=== PATIENT | female | born 1965 | race Caucasian/White ===

== ENCOUNTER 2017-10-29 06:02 | Day surgery (SDC) | payer BC ==
[2017-10-29] MEDS ORDERED: DIPRIVAN 200 MG/20 ML IV ONE (06:03)
[2017-10-29] MEDS ORDERED: Lactated Ringers 1,000 ML IV SCH (07:00)
[2017-10-29 08:44] VITALS: PULSE 74; O2SAT 96
[2017-10-29 08:58] VITALS: BP 130/60
--- NOTE | 2017-10-29 10:49 | OP ---
SURGERY DATE/TIME: 10/26/2017 0755 PREOPERATIVE DIAGNOSIS: Screening exam. POSTOPERATIVE DIAGNOSIS: Normal colon. PROCEDURE: Colonoscopy. SURGEON: Dr. Trinidad. ANESTHESIA: MAC. Medications given by anesthesia department. HISTORY: The patient is a 51 year-old white female presenting now for screening colonoscopy. She was appraised of the risks of the procedure including the risk of perforation, phlebitis, untoward reaction to medication, bleeding and missed lesions. The patient verbalized her understanding and desired to have the procedure performed. DESCRIPTION OF PROCEDURE: The patient was given the medications by the anesthesia department. She had continuous pulse oximetry, ECG monitoring, intermittent blood pressure monitoring and tidal CO2 monitoring during the examination. She was placed in the left lateral decubitus position. A digital rectal examination was performed and revealed normal anal sphincter tone and no masses. The flexible Olympus pediatric colonoscope was used to intubate the rectum. A view of the colon was developed sequentially to the cecum. Upon insertion and withdrawal, including a retroflex view in the rectum, no mucosal lesions were noted. The scope was removed from the patient who tolerated the procedure well and was sent back to OP recovery in good condition. The prep was noted to be fair to good.
== END 2017-10-29 09:12 | disposition home or self-care (01) ==
LOC: SDC 06:02
PROVIDERS: ATTEND Family Medicine
DX: Z12.11 Encounter for screening for malignant neoplasm of colon (principal); I10 Essential (primary) hypertension; E03.9 Hypothyroidism, unspecified
CPT/HCPCS: 94250; J2704

== ENCOUNTER 2019-05-04 14:20 | Emergency (ER) | payer BC ==
--- NOTE | 2019-05-04 14:45 | ERPHSYRPT ---
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 reports left wrist pain that radiates to the elbow. pt also reports some left sided neck tenderness. pt denies LOC. pt denies striking her head. Triage Nursing Assessment: pt is aox3, pupils perrl, afebrile, resps easy and non labored, pt radial pulses strong and equal, cap refill , 3 seconds, pt skin pink warm dry. pt sensation and ROM intact. pt able to move all fingers on injured extremity, no obvious injury or deformity noted. Physician History: 53 yo presented with CC of left wrist pain after she slipped at home and tried to catch herself with left out stretched hand. didnt hit head or injury anywhere else. has mild swelling of the distal wrist and proximal hand but no deformity. no numbness/weakness of digits. Occurred: just prior to arrival Method of Injury: fell Quality: constant, sharpness Severity of Pain-Max: moderate Severity of Pain-Current: moderate Extremities Pain Location: wrist: left Modifying Factors: Improves With: immobilization, movement Allergies/Adverse Reactions: No Known Drug Allergies Allergy (Verified 05/04/19 14:32) Home Medications: Atorvastatin Calcium [Lipitor] 10 mg PO DAILY 10/26/17 [History] Levothyroxine Sodium 50 Mcg [Synthroid 50 Mcg] 50 mcg PO DAILY 10/26/17 [ History] Loratadine 10 mg [Claritin 10 mg] 10 mg PO DAILY 10/26/17 [History] Nebivolol HCl 5 MG [Bystolic 5 MG] 5 mg PO DAILY 10/26/17 [History] Hx Tetanus, Diphtheria Vaccination/Date Given: Yes (unk) Hx Influenza Vaccination/Date Given: No Hx Pneumococcal Vaccination/Date Given: No Immunizations Up to Date: Yes - Review of Systems Constitutional: No Symptoms Eyes: No Symptoms Ears, Nose, & Throat: No Symptoms Respiratory: No Symptoms Cardiac: No Symptoms Abdominal/Gastrointestinal: No Symptoms Musculoskeletal: Fall, Joint Pain, Joint Swelling Skin: No Symptoms Neurological: No Symptoms Psychological: No Symptoms Endocrine: No Symptoms Immunological/Allergic: No Symptoms - Past Medical History Pertinent Past Medical History: Yes Neurological History: No Pertinent History ENT History: No Pertinent History Cardiac History: High Cholesterol, Hypertension, Other Respiratory History: Other Endocrine Medical History: No Pertinent History Musculoskeletal History: No Pertinent History GI Medical History: No Pertinent History History: No Pertinent History Psycho-Social History: No Pertinent History Female Reproductive Disorders: No Pertinent History Other Medical History: states hx of rheumatit fever, possible heart murmur - Past Surgical History Past Surgical History: Yes Neuro Surgical History: No Pertinent History Cardiac: No Pertinent History Respiratory: Other Gastrointestinal: No Pertinent History Genitourinary: No Pertinent History Musculoskeletal: No Pertinent History Female Surgical History: Tubal Ligation Other Surgical History: states cleft palate/lip, snores at night - Social History Smoking Status: Never smoker Exposure to second hand smoke: No Drug Use: none Patient Lives Alone: No - Female History Hx Last Menstrual Period: pre menopause Hx Now: No - Nursing Vital Signs Nursing Vital Signs: Initial Vital Signs Temperature 97.3 F 05/04/19 14:22 Pulse Rate 87 05/04/19 14:22 Respiratory Rate 20 05/04/19 14:22 Blood Pressure 148/84 05/04/19 14:22 O2 Sat by Pulse Oximetry 97 05/04/19 14:22 Pain Scale Pain Intensity 5 - Physical Exam General Appearance: no apparent distress Eyes, Ears, Nose, Throat Exam: normal ENT inspection Neck Exam: normal inspection, non-tender, supple, full range of motion Cardiovascular/Respiratory Exam: normal breath sounds, regular rate/rhythm Abdominal Exam: non-tender, soft Back Exam: normal inspection Shoulder Exam: normal inspection, non-tender, no evidence of injury, normal ROM Elbow/Forearm Exam: normal inspection, non-tender, no evidence of injury, normal ROM Wrist Exam: bone tenderness (distal radius. no snuff box tenderness.), limited ROM, pain, soft tissue tenderness, swelling, No deformity Neuro/Tendon Exam: normal sensation, normal motor functions Mental Status Exam: alert, oriented x 3 Skin Exam: normal color SpO2 Interpretation: normal SpO2: 97 O2 Delivery: Room Air - Course Nursing assessment & vital signs reviewed: Yes Ordered Tests: Active Orders 24 hr Category Date Time Status Cold Application STAT Care 05/04/19 14:30 Active WRIST (MIN 3 VIEWS) Stat Exams 05/04/19 15:01 Taken - Progress Progress: pain not gone completely, re-examined Progress Note: 05/04/19 15:23 she refused pain meds. has some questionable wrist fracture , radiology report is pending , willplace in sugar tong splint /sling and outpatient ortho follow up. shehas naproxen at home which she is advised to take and f/u - Departure Departure Disposition: Home Clinical Impression: Acute pain of left wrist Condition: Stable Critical Care Time: No Referrals: GEE ABARCA [Primary Care Provider] - Follow Up with PCP/3 days ARTUR[facility] [NON-STAFF PHY W/O PRIVILEGES] - (1-2 days for re evaluation) Instructions: Wrist Fracture, Wrist Sprain Additional Instructions: use tylenol/naproxen as needed for pain, elevation, ice, follow up with ortho clinic for re evaluation.
[2019-05-04 15:17] VITALS: PULSE 76
[2019-05-04 15:29] VITALS: O2SAT 97
[2019-05-04 15:41] VITALS: BP 134/68
--- NOTE | 2019-05-04 18:35 | XRAY ---
Indication: Pain following fall. Comparison: None 3 views of the left wrist demonstrates nondisplaced corner fracture distal radius laterally with intra-articular extension and mild 1st metacarpal multangular degenerative changes with tiny heterotopic ossification. No other bony, ocular, or soft tissue abnormalities.
== END 2019-05-04 15:48 | disposition home or self-care (01) ==
LOC: ED 14:20
DX: M25.532 Pain in left wrist (principal); M54.2 Cervicalgia; W01.0XXA Fall on same level from slipping, tripping and stumbling without subsequent striking against object, initial encounter; E78.00 Pure hypercholesterolemia, unspecified; I10 Essential (primary) hypertension
CPT/HCPCS: 73110; 99284

== ENCOUNTER 2022-09-12 17:46 | Emergency (ER) | payer BC ==
--- NOTE | 2022-09-12 18:00 | ERPHSYRPT ---
- History of Present Illness Time Seen by Provider: 09/12/22 18:00 Historian: patient Exam Limitations: no limitations Physician History: Patient is a 56-year-old female presents to our ED for evaluation of intermittent chest pain. Chest pain started approximately 2 days ago. Patient states the pain tends to radiate towards her back. No nausea vomiting or diaphoresis. Patient is a non-smoker. Patient states she smoked approximately 30 years ago but has not smoked since. No trauma. No fever. Symptoms are mild to moderate in intensity when present. Significant other at bedside. They voiced no other complaints or concerns at this time. Portions of this note were created with voice recognition technology. There may be grammatical, spelling, punctuation or sound alike errors Timing/Duration: day(s) (2 days ago) Activities at Onset: none Quality: aching Location: substernal Chest Pain Radiation: back Severity of Pain-Max: moderate Severity of Pain-Current: mild Modifying Factors: Improves With: nothing Associated Symptoms: denies symptoms Prior Chest Pain/Cardiac Workup: no prior chest pain Nitro Today/Relief: no nitro taken today Aspirin Treatment Today: no aspirin today Allergies/Adverse Reactions: No Known Drug Allergies Allergy (Verified 09/12/22 17:51) Home Medications: Atorvastatin Calcium [Lipitor] 10 mg PO DAILY 10/26/17 [History] Levothyroxine Sodium 50 Mcg [Synthroid 50 Mcg] 50 mcg PO DAILY 10/26/17 [History] Loratadine 10 mg [Claritin 10 mg] 10 mg PO DAILY 10/26/17 [History] Nebivolol HCl 5 MG [Bystolic 5 MG] 5 mg PO DAILY 10/26/17 [History] Hx Tetanus, Diphtheria Vaccination/Date Given: Yes (unk) Hx Influenza Vaccination/Date Given: No Hx Pneumococcal Vaccination/Date Given: No - Review of Systems Constitutional: No Symptoms, No Fever, No Chills Eyes: No Symptoms Ears, Nose, & Throat: No Symptoms Respiratory: No Symptoms, No Cough, No Dyspnea Cardiac: No Symptoms, No Chest Pain, No Edema, No Syncope Abdominal/Gastrointestinal: No Symptoms, No Abdominal Pain, No Nausea, No Vomiting, No Diarrhea Genitourinary Symptoms: No Symptoms, No Dysuria Musculoskeletal: No Symptoms, No Back Pain, No Neck Pain Skin: No Symptoms, No Rash Neurological: No Symptoms, No Dizziness, No Focal Weakness, No Sensory Changes Psychological: No Symptoms Endocrine: No Symptoms Hematologic/Lymphatic: No Symptoms Immunological/Allergic: No Symptoms All Other Systems: Reviewed and Negative - Past Medical History Pertinent Past Medical History: Yes Neurological History: No Pertinent History ENT History: No Pertinent History Cardiac History: High Cholesterol, Hypertension, Other Respiratory History: Other Endocrine Medical History: No Pertinent History Musculoskeletal History: No Pertinent History GI Medical History: No Pertinent History History: No Pertinent History Psycho-Social History: No Pertinent History Female Reproductive Disorders: No Pertinent History Other Medical History: states hx of rheumatit fever, possible heart murmur - Past Surgical History Past Surgical History: Yes Neuro Surgical History: No Pertinent History Cardiac: No Pertinent History Respiratory: Other Gastrointestinal: No Pertinent History Genitourinary: No Pertinent History Musculoskeletal: No Pertinent History Female Surgical History: Tubal Ligation Other Surgical History: states cleft palate/lip, snores at night - Social History Smoking Status: Never smoker Exposure to second hand smoke: No Drug Use: none Patient Lives Alone: No - Nursing Vital Signs Nursing Vital Signs: Initial Vital Signs Temperature 97.6 F 09/12/22 17:53 Pulse Rate 63 09/12/22 17:53 Respiratory Rate 14 09/12/22 17:53 Blood Pressure 115/77 09/12/22 17:53 O2 Sat by Pulse Oximetry 98 09/12/22 17:53 Pain Scale Pain Intensity 2 - Physical Exam General Appearance: no apparent distress, alert Eye Exam: PERRL/EOMI, eyes nml inspection Ears, Nose, Throat Exam: normal ENT inspection, moist mucous membranes Neck Exam: normal inspection, non-tender, supple, full range of motion Respiratory Exam: normal breath sounds, lungs clear, airway intact, No respiratory distress Cardiovascular Exam: regular rate/rhythm, normal heart sounds, normal peripheral pulses Gastrointestinal/Abdomen Exam: soft, No tenderness, No mass Back Exam: normal inspection, No CVA tenderness, No vertebral tenderness Extremity Exam: normal inspection, normal range of motion Neurologic Exam: alert, oriented x 3, cooperative, normal mood/affect, sensation nml, No motor deficits Skin Exam: normal color, warm, dry Lymphatic Exam: No adenopathy SpO2 Interpretation: normal SpO2: 98 O2 Delivery: Room Air - Course Nursing assessment & vital signs reviewed: Yes EKG Interpreted by Me: RATE (68), Sinus Rhythm, NORMAL AXIS, NORMAL INTERVALS (CXR, no acute findings) - Radiology Exams Chest X-ray Interpretation: Teleradiologist Report (No acute findings observed on today's chest x-ray.) - CT Exams Chest CT Interpretation: Tele-radiologist Report (CTA chest negative for PE. Right mi ddle and lower lobe lung nodules observed.) Ordered Tests: Active Orders 24 hr Category Date Time Status Watch Caser STAT Care 09/12/22 18:01 Active EKG-ER Only STAT Care 09/12/22 18:00 Active IV Insertion STAT Care 09/12/22 18:00 Active Pulse Oximetry (ED) STAT Care 09/12/22 18:00 Active CHEST 1 VIEW (PORTABLE) Stat Exams 09/12/22 18:01 Taken CHEST WITH CONTRAST [CT] Stat Exams 09/12/22 21:16 Completed CBC W DIFF Stat Lab 09/12/22 18:20 Completed CMP Stat Lab 09/12/22 18:20 Completed D-DIMER QUANTITATIVE Stat Lab 09/12/22 18:00 Completed NT PRO BNPII Stat Lab 09/12/22 18:20 Completed TROPONIN Q4H Lab 09/12/22 18:20 Completed TROPONIN Q4H Lab 09/12/22 22:30 Completed TROPONIN Q4H Lab 09/13/22 02:15 Ordered Lab/Rad Data: Laboratory Result Diagrams 09/12/22 18:20 09/12/22 18:20 Laboratory Results 09/12/22 09/12/22 09/12/22 Range/Units 22:30 18:20 18:20 WBC (4.0-10.5) x10^3/uL RBC (4.1-5.4) x10^6/uL Hgb (12.0-16.0) g/dL Hct (35-47) % MCV (78-100) fL MCH (26-32) pg MCHC (32-36) g/dL RDW (11.5-14.0) % Plt Count (150-450) x10^3/uL MPV (7.5-11.0) fL Gran % (36.0-66.0) % Immature Gran % (Auto) (0.00-0.4) % Nucleat RBC Rel Count (0.00-0.1) % Eos # (Auto) (0-0.5) x10^3/uL Immature Gran # (Auto) (0.00-0.03) x10^3u/L Absolute Lymphs (auto) (1.0-4.6) x10^3/uL Absolute Monos (auto) (0.0-1.3) x10^3/uL Absolute Nucleated RBC (0.00-0.01) x10^3u/L Lymphocytes % (24.0-44.0) % Monocytes % (0.0-12.0) % Eosinophils % (0.00-5.0) % Basophils % (0.0-0.4) % Absolute Granulocytes (1.4-6.9) x10^3/uL Basophils # (0-0.4) x10^3/uL D-Dimer (0.0-0.50) mg/L Sodium (137-145) mmol/L Potassium (3.5-5.1) mmol/L Chloride (98-107) mmol/L Carbon Dioxide (22-30) mmol/L Anion Gap (5-15) MEQ/L BUN (7-17) mg/dL Creatinine (0.52-1.04) mg/dL Estimated GFR ML/MIN Glucose (74-106) mg/dL Calcium (8.4-10.2) mg/dL Total Bilirubin (0.2-1.3) mg/dL AST (14-36) U/L ALT (0-35) U/L Alkaline Phosphatase (38-126) U/L Troponin I < 0.012 < 0.012 (0.000-0.034) ng/mL NT-Pro-B Natriuret Pep 22.1 (<300) pg/mL Serum Total Protein (6.3-8.2) g/dL Albumin (3.5-5.0) g/dL 09/12/22 09/12/22 09/12/22 Range/Units 18:20 18:20 18:00 WBC 8.8 (4.0-10.5) x10^3/uL RBC 4.42 (4.1-5.4) x10^6/uL Hgb 13.5 (12.0-16.0) g/dL Hct 40.7 (35-47) % MCV 92.1 (78-100) fL MCH 30.5 (26-32) pg MCHC 33.2 (32-36) g/dL RDW 11.9 (11.5-14.0) % Plt Count 303 (150-450) x10^3/uL MPV 9.3 (7.5-11.0) fL Gran % 61.4 (36.0-66.0) % Immature Gran % (Auto) 0.1 (0.00-0.4) % Nucleat RBC Rel Count 0.0 (0.00-0.1) % Eos # (Auto) 0.10 (0-0.5) x10^3/uL Immature Gran # (Auto) 0.01 (0.00-0.03) x10^3u/L Absolute Lymphs (auto) 2.70 (1.0-4.6) x10^3/uL Absolute Monos (auto) 0.53 (0.0-1.3) x10^3/uL Absolute Nucleated RBC 0.00 (0.00-0.01) x10^3u/L Lymphocytes % 30.6 (24.0-44.0) % Monocytes % 6.0 (0.0-12.0) % Eosinophils % 1.1 (0.00-5.0) % Basophils % 0.8 (0.0-0.4) % Absolute Granulocytes 5.40 (1.4-6.9) x10^3/uL Basophils # 0.07 (0-0.4) x10^3/uL D-Dimer 1.19 H* (0.0-0.50) mg/L Sodium 140 (137-145) mmol/L Potassium 4.1 (3.5-5.1) mmol/L Chloride 103 (98-107) mmol/L Carbon Dioxide 28 (22-30) mmol/L Anion Gap 14.0 (5-15) MEQ/L BUN 19 H (7-17) mg/dL Creatinine 0.85 (0.52-1.04) mg/dL Estimated GFR > 60.0 ML/MIN Glucose 94 (74-106) mg/dL Calcium 9.3 (8.4-10.2) mg/dL Total Bilirubin 0.50 (0.2-1.3) mg/dL AST 29 (14-36) U/L ALT 34 (0-35) U/L Alkaline Phosphatase 70 (38-126) U/L Troponin I (0.000-0.034) ng/mL NT-Pro-B Natriuret Pep (<300) pg/mL Serum Total Protein 8.0 (6.3-8.2) g/dL Albumin 4.4 (3.5-5.0) g/dL - Progress Progress: improved Air Movement: good Progress Note: Patient's heart score is a 3. Score of 1 for age and a score of 2 for 3 coronary artery risk factors. Troponin negative x2. Low suspicion given the characteristics of patient's pain. Patient currently asymptomatic. Vital stable. EKG normal sinus rhythm. Will discharge home. Patient agrees to follow-up with her primary care doctor on . She currently has a an appointment scheduled for routine follow-up. Portions of this note were created with voice recognition technology. There may be grammatical, spelling, punctuation or sound alike errors 09/12/22 23:39 Patient is a 56-year-old female presents to our ED for evaluation of chest pain. Chest pain is substernal and intermittent in nature. The occurrence of pain is not associated with exertion. Pain occurs randomly intermittent at rest. No associated nausea vomiting or diaphoresis. Test ordered includes EKG. EKG is normal sinus rhythm with a rate of 68. No ischemic changes observed. D-dimer positive. CTA chest negative for PE. Chest x-ray nonremarkable. CBC CMP nonremarkable. BNP negative. Troponin negative x2. 09/12/22 23:41 Complexity of problem addressed is moderate, acute/complicated Critical care time Complexity of data reviewed and analyzed is moderate. Dr. Cam independently reviewed and analyzed laboratory studies chest x-ray and EKG. CT chest report reviewed and clinically correlated. Heart score completed. Patient is low risk for Mace. Risk of complication and or risk of morbidity/mortality of patient management is low. No prescriptions written. No surgical procedures. No social determina nts of health present to impede follow-up. We will discharge home. Patient will follow-up with her primary care doctor on as planned. Patient understand that if symptoms worsen or continue or if any concerning new symptoms occur patient is to return to our ED for further evaluation. Portions of this note were created with voice recognition technology. There may be grammatical, spelling, punctuation or sound alike errors 09/12/22 23:43 Blood Culture(s) Obtained: No Antibiotics given: No Counseled pt/family regarding: lab results, diagnosis, rad results - Departure Departure Disposition: Home Clinical Impression: Chest pain, Lung nodule Condition: Stable Critical Care Time: No Referrals: GEE ABARCA [Primary Care Provider] - Follow up/PCP as directed Additional Instructions: Discharge/Care Plan ARIELTIANNA TEJEDA was seen on 09/12/22 in the Emergency Room. The patient was counseled regarding Diagnosis,Lab results, Imaging studies, need for follow up and when to return to the Emergency Room. Prescriptions given: Discharge Note I have spoken with the patient and/or caregivers. I have explained the patient's condition, diagnosis and treatment plan based on the information available to me at this time. I have answered the patient's and/or caregiver's questions and addressed any concerns. The patient and/or caregivers have as good understanding of the patient's diagnosis, condition and treatment plan as can be expected at this point. The vital signs have been stable. The patient's condition is stable and appropriate for discharge from the emergency department. The patient will pursue further outpatient evaluation with the primary care physician or other designated or consulting physician as outlined in the discharge instructions. The patient and/or caregivers are agreeable to this plan of care and follow-up instructions have been explained in detail. The patient and/or caregivers have received these instruction. The patient/and or caregivers are aware that any significant change in condition or worsening of symptoms should prompt an immediate return to this or the closest emergency department or call 911.
[2022-09-12 18:27] LABS: BASOPHIL % 0.8 % (0.0-0.4); Basophil (Absolute #) 0.07 x10^3/uL (0-0.4); Eosinophil % 1.1 % (0.00-5.0); Hematocrit 40.7 % (35-47); Hemoglobin 13.5 g/dL (12.0-16.0); IMMATURE GRAN # 0.01 x10^3u/L (0.00-0.03); IMMATURE GRAN % 0.1 % (0.00-0.4); Lymphocytes % 30.6 % (24.0-44.0); Mean Cell Volume 92.1 fL (78-100); Mean Corpuscular Hemoglobin 30.5 pg (26-32); Mean Corpuscular Hgb Concent. 33.2 g/dL (32-36); Mean Platelet Volume 9.3 fL (7.5-11.0); Monocyte (Absolute #) 0.53 x10^3/uL (0.0-1.3); Neutrophil % 61.4 % (36.0-66.0); Platelet Count 303 x10^3/uL (150-450); Red Blood Count 4.42 x10^6/uL (4.1-5.4); Red Cell Distribution Width 11.9 % (11.5-14.0); White Blood Count 8.8 x10^3/uL (4.0-10.5)
[2022-09-12 18:42] LABS: ALBUMIN 4.4 g/dL (3.5-5.0); ALKALINE PHOSPHATASE 70 U/L (38-126); BLOOD UREA NITROGEN 19 mg/dL (7-17); CHLORIDE 103 mmol/L (98-107); Calcium 9.3 mg/dL (8.4-10.2); Carbon Dioxide 28 mmol/L (22-30); Creatinine 1 0.85 mg/dL (0.52-1.04); EST GLOMERULAR FILTRATION RATE > 60.0 ML/MIN; Glucose 94 mg/dL (74-106); Potassium 4.1 mmol/L (3.5-5.1); SGOT/AST 29 U/L (14-36); SGPT/ALT 34 U/L (0-35); SODIUM 140 mmol/L (137-145)
--- NOTE | 2022-09-12 23:28 | XRAY ---
CLINICAL HISTORY:pain, PE? COMPARISON:None; TECHNIQUES:Axial CT angiography images through the lungs were acquired with contrast. Coronal and sagittal reconstructions were performed. Radiation dose: CTDIvol = 61.52 mGy, DLP = 1447.23 mGy x cm. Contrast: Omnipaque; FINDINGS: Lungs: No pulmonary infiltrate identified. A hyperdense pulmonary nodule is noted in the superior segment of the right lower lobe measuring 7 mm. A 2 mm pulmonary nodule is noted in the right middle lobe. No pulmonary mass is identified. No pleural effusions identified. No pneumothorax. The airway is clear. Soft Tissues: No mediastinal, axillary, or supraclavicular adenopathy is identified. Vascular: No filling defect within the pulmonary arteries to the segmental branch level. Unremarkable aorta. Grossly unremarkable sized heart. Bony structures: Mild degenerative changes are seen in the visualized skeleton. Upper Abdomen: Limited visualization of the solid upper abdominal organs is grossly unremarkable. IMPRESSION: 1. No pulmonary thromboembolism. 2. A hyperdense nodule in the right lower lobe is likely a calcified granuloma. Electronically Signed by: Rachelle Blakely MD. (09/12/2022 22:23:15 ELECTRICAL ESTIMATOR)
[2022-09-12 23:57] VITALS: BP 124/71; PULSE 79; O2SAT 97
--- NOTE | 2022-09-13 08:44 | XRAY ---
Indication: Chest pain. Comparison: February 04, 2019 Portable chest again demonstrates normal heart and lungs. Bony thorax intact. No new/acute findings.
== END 2022-09-12 23:56 | disposition home or self-care (01) ==
LOC: ED 17:46
DX: R07.9 Chest pain, unspecified (principal); R91.1 Solitary pulmonary nodule; E78.5 Hyperlipidemia, unspecified; I10 Essential (primary) hypertension; Z79.899 Other long term (current) drug therapy
CPT/HCPCS: 36000; 36415; 71045; 71260; 80053; 83880; 84484; 85025; 85379; 93005; 93041; 94760; 99284

== ENCOUNTER 2024-12-06 16:45 | Emergency (ER) | payer OTHER ==
[2024-12-06 16:49] VITALS: BP 181/92; PULSE 71; RESP 18
--- NOTE | 2024-12-06 16:52 | ERPHSYRPT ---
- History of Present Illness Time Seen by Provider: 12/06/24 16:52 Historian: patient Exam Limitations: no limitations Physician History: This is a morbidly obese 59-year-old white female patient of Dr. Abarca and pageant director Dr. Hicks who presents to the emergency department with relatively acute onset of left anterior chest pain that radiates up into her left neck and left shoulder/arm. Patient has a history of hypertension, hypothyroidism and hyperlipidemia. Because of the pain, she took 2 nitroglycerin. However, she states that that medicine was 11 years old. On 09/12/2022, the patient's twelve-lead EKG was reviewed by me. The heart rate was 88 and the pattern was normal sinus rhythm with subacute ischemia. Patient underwent an echocardiogram on 03/05/2020 and the ejection fraction was 59%. I reviewed the patient's total calcium heart score that was calculated on 08/19/2024 and that value was 212. The patient arrives with a systolic blood pressure running approximately 170 to 180 mmHg. She is in distress. The initial twelve-lead EKG was interpreted by me and it shows minimal ST elevation in 2, 3, aVF. We immediately started intravenous line, 4 baby aspirin, morphine 4 mg intravenously and Zofran [address] Candelario diallo our telemetry pageant director reviewed the twelve-lead EKG and agreed that EKG does show inferior leads ST elevation. He said it may be pericarditis and not an acute STEMI. However because there is elevation present we activated the Practical Nursing Instructor through [facility]. Timing/Duration: today Quality: sharpness Location: other (Left anterior chest) Chest Pain Radiation: jaw (Left side), neck (Left side), arm ( left side left side) Severity of Pain-Max: moderate Severity of Pain-Current: moderate Modifying Factors: Improves With: nothing Associated Symptoms: denies symptoms Prior Chest Pain/Cardiac Workup: echocardiography Nitro Today/Relief: 0.4 mg x 2 (11 years old), provided at home Aspirin Treatment Today: 81 mg x 4, provided by ED Allergies/Adverse Reactions: No Known Drug Allergies Allergy (Verified 12/06/24 16:55) Home Medications: Atorvastatin Calcium [Lipitor] 10 mg PO DAILY 10/26/17 [History] Levothyroxine Sodium 50 Mcg [Synthroid 50 Mcg] 50 mcg PO DAILY 10/26/17 [History] Loratadine 10 mg [Claritin 10 mg] 10 mg PO DAILY 10/26/17 [History] Nebivolol HCl 5 MG [Bystolic 5 MG] 5 mg PO DAILY 10/26/17 [History] lisinopriL [Zestril] 2.5 mg PO DAILY 11/02/24 [History] Hx Tetanus, Diphtheria Vaccination/Date Given: No (unk) Hx Influenza Vaccination/Date Given: No Hx Pneumococcal Vaccination/Date Given: No Travel Risk - International Travel Have you traveled outside of the country in past 3 weeks: No - Emerging Infectious Disease Are you exhibiting symptoms associated with any current EIDs: No - Review of Systems Constitutional: No Symptoms Eyes: No Symptoms Ears, Nose, & Throat: No Symptoms Respiratory: No Symptoms Cardiac: Chest Pain Abdominal/Gastrointestinal: No Symptoms Genitourinary Symptoms: No Symptoms Musculoskeletal: No Symptoms Skin: No Symptoms Neurological: No Symptoms Psychological: No Symptoms Endocrine: No Symptoms Hematologic/Lymphatic: No Symptoms Immunological/Allergic: No Symptoms All Other Systems: Reviewed and Negative - Past Medical History Pertinent Past Medical History: Yes Neurological History: No Pertinent History ENT History: No Pertinent History Cardiac History: High Cholesterol, Hypertension, Other Respiratory History: Other Endocrine Medical History: No Pertinent History Musculoskeletal History: No Pertinent History GI Medical History: No Pertinent History History: No Pertinent History Psycho-Social History: No Pertinent History Female Reproductive Disorders: No Pertinent History Other Medical History: cleft pallate and lip, possible heart murmur - Past Surgical History Past Surgical History: Yes Neuro Surgical History: No Pertinent History Cardiac: No Pertinent History Respiratory: Other Gastrointestinal: No Pertinent History Genitourinary: No Pertinent History Musculoskeletal: No Pertinent History Female Surgical History: Tubal Ligation Other Surgical History: states cleft palate/lip, snores at night - Social History Smoking Status: Never smoker Exposure to second hand smoke: No Drug Use: none - Social Determinants of Health Will the patient participate in the screening: Yes Do you worry about a steady place to live?: No In the past 12 months,have you had to go without utilities?: No Transportation Issues: No Has anyone in your support network made you feel unsafe?: No Have you or anyone in your house had to go w/o enough food: No - Nursing Vital Signs Nursing Vital Signs: Initial Vital Signs Pulse Rate 71 09/13/25 16:48 Respiratory Rate 18 12/06/24 16:48 Blood Pressure 181/92 12/06/24 16:48 O2 Sat by Pulse Oximetry 99 12/06/24 16:48 Pain Scale Pain Intensity 8 - Physical Exam General Appearance: mild distress, alert, anxiety, obese Eye Exam: PERRL/EOMI, eyes nml inspection Ears, Nose, Throat Exam: normal ENT inspection, moist mucous membranes Neck Exam: normal inspection, non-tender, supple, full range of motion Respiratory Exam: normal breath sounds, chest tenderness, lungs clear, airway intact, No respiratory distress Cardiovascular Exam: regular rate/rhythm, normal heart sounds, normal peripheral pulses Gastrointestinal/Abdomen Exam: soft, normal bowel sounds, No tenderness Pelvic Exam: not done Rectal Exam: not done Back Exam: normal inspection, normal range of motion, No CVA tenderness, No vertebral tenderness Extremity Exam: normal inspection, normal range of motion, pelvis stable Neurologic Exam: alert, oriented x 3, cooperative, cloth dye range operator II-XII nml as tested Skin Exam: normal color, warm, dry Lymphatic Exam: No adenopathy SpO2 Interpretation: normal SpO2: 99 O2 Delivery: Room Air - Course Nursing assessment & vital signs reviewed: Yes EKG Interpreted by Me: RATE, Sinus Rhythm, NORMAL AXIS, NORMAL INTERVALS, Other (QTc is 406. There does appear to be minimal ST elevation in the inferior leads. The remainder of the 12-lead appears to be unremarkable) Ordered Tests: Active Orders 24 hr Category Date Time Status Costume Shop Coordinator STAT Care 12/06/24 16:53 Active EKG-ER Only STAT Care 12/06/24 16:52 Active IV Insertion STAT Care 12/06/24 16:52 Active Pulse Oximetry (ED) STAT Care 12/06/24 16:52 Active CHEST 1 VIEW (PORTABLE) Stat Exams 12/06/24 16:52 Ordered CBC Q48H Lab 12/07/24 06:00 Ordered CBC Q48H Lab 12/09/24 06:00 Ordered CBC Q48H Lab 12/11/24 06:00 Ordered CBC Q48H Lab 12/13/24 06:00 Ordered CBC Q48H Lab 12/15/24 06:00 Ordered CBC Q48H Lab 12/17/24 06:00 Ordered CBC Q48H Lab 12/19/24 06:00 Ordered CBC W DIFF Stat Lab 12/06/24 17:09 Completed CK-Creatinine Phosphokinase Stat Lab 12/06/24 17:09 Received CMP Stat Lab 12/06/24 17:09 Received PROTIME WITH INR Stat Lab 12/06/24 17:09 Received PTT Q4H Lab 12/06/24 21:15 Ordered PTT Q4H Lab 12/07/24 01:15 Ordered PTT Q4H Lab 12/07/24 05:15 Ordered PTT Q4H Lab 12/07/24 09:15 Ordered PTT Q4H Lab 12/07/24 13:15 Ordered PTT Q4H Lab 12/07/24 17:15 Ordered PTT Q4H Lab 12/07/24 21:15 Ordered PTT Q4H Lab 12/08/24 01:15 Ordered PTT Q4H Lab 12/08/24 05:15 Ordered PTT Q4H Lab 12/08/24 09:15 Ordered PTT Q4H Lab 12/08/24 13:15 Ordered PTT Stat Lab 12/06/24 17:09 Received TROPONIN Q4H Lab 12/06/24 17:09 Received TROPONIN Q4H Lab 12/06/24 21:00 Ordered TROPONIN Q4H Lab 12/07/24 01:00 Ordered Medication Summary Generic Name Dose Route Start Last Admin Trade Name Freq PRN Reason Stop Dose Admin Sodium Chloride 1,000 mls @ 100 mls/hr 12/06/24 17:00 12/06/24 17:01 Sodium Chloride 0.9% 1000 Ml IV 01/05/25 16:59 100 mls/hr .Q10H MARLYN Administration Discontinued Medications Generic Name Dose Route Start Last Admin Trade Name Freq PRN Reason Stop Dose Admin Aspirin 324 mg 12/06/24 16:52 12/06/24 17:00 Aspirin 81 Mg Tab.Chew PO 12/06/24 16:53 324 mg STAT ONE Administration Aspirin Confirm 12/06/24 16:58 Aspirin 81 Mg Tab.Chew Administered 12/06/24 16:59 Dose 324 mg .ROUTE .STK-MED ONE Heparin Sodium (Beef Lung) 5,000 unit 12/06/24 17:09 12/06/24 17:12 Heparin 5000 Units/0.5 Ml 5,000 Unit/0.5 Ml Syr IV 12/06/24 17:10 5,000 unit STAT ONE Administration Heparin Sodium (Beef Lung) Confirm 12/06/24 17:11 Heparin 5000 Units/0.5 Ml 5,000 Unit/0.5 Ml Syr Administered 12/06/24 17:12 Dose 5,000 unit .ROUTE .STK-MED ONE Morphine Sulfate 4 mg 12/06/24 16:52 12/06/24 17:00 Morphine Sulfate 4 Mg/Ml Injection IV 12/06/24 16:53 4 mg STAT ONE Administration Morphine Sulfate Confirm 12/06/24 16:58 Morphine Sulfate 4 Mg/Ml Injection Administered 12/06/24 16:59 Dose 4 mg .ROUTE .STK-MED ONE Ondansetron HCl 4 mg 12/06/24 16:52 12/06/24 16:59 Ondansetron Hcl 4 Mg/2 Ml Vial IV 12/06/24 16:53 4 mg STAT ONE Administration Ondansetron HCl Confirm 12/06/24 16:57 Ondansetron Hcl 4 Mg/2 Ml Vial Administered 12/06/24 16:58 Dose 4 mg .ROUTE .STK-MED ONE Lab/Rad Data: Laboratory Result Diagrams 12/06/24 17:09 Laboratory Results 12/06/24 Range/Units 17:09 WBC 14.8 H (3.98-10.04) x10^3/uL RBC 4.78 (3.93-5.22) x10^6/uL Hgb 14.9 (11.2-15.7) g/dL Hct 45.7 H (34.1-44.9) % MCV 95.6 H (79.4-94.8) fL MCH 31.2 (25.6-32.2) pg MCHC 32.6 (32.2-35.5) g/dL RDW 12.1 (11.7-14.4) % Plt Count 345 (182-369) x10^3/uL MPV 9.1 L (9.4-12.3) fL Gran % 82.0 H (34.0-71.1) % Immature Gran % (Auto) 0.9 H (0.001-0.429) % Nucleat RBC Rel Count 0.0 (0.00-0.2) % Eos # (Auto) 0 L (0.04-0.36) x10^3/uL Immature Gran # (Auto) 0.13 H (0.001-0.031) x10^3u/L Absolute Lymphs (auto) 1.82 (1.18-3.74) x10^3/uL Absolute Monos (auto) 0.67 (0.24-0.86) x10^3/uL Absolute Nucleated RBC 0.00 (0.00-0.012) x10^3u/L Lymphocytes % 12.3 L (19.3-51.7) % Monocytes % 4.5 L (4.7-12.5) % Eosinophils % 0.0 L (0.7-5.8) % Basophils % 0.3 (0.1-1.2) % Absolute Granulocytes 12.09 H (1.56-6.13) x10^3/uL Basophils # 0.05 (0.01-0.08) x10^3/uL - Progress Progress: re-examined, unchanged Air Movement: good Progress Note: 12/06/24 17:27 My medical decision making and the assignment of high complexity of this patient's medical issue today is based on review of the patient's past medical history, review the patient's medication list, reviewed patient drug allergy list, history of present illness and physical findings on examination. The workup in this patient includes stat twelve-lead EKG, stat aspirin 4 x 81 mg chewable, stat IV placement, CBC, CMP, magnesium level, troponin level, 4 mg intravenous Zofran, 4 mg intravenous morphine, heparin 5000 units bolus, nitroglycerin drip. I also consulted Abbie romero, her telemetry pageant director. Differential diagnosis includes was not limited to muscle skeletal pain, myocardial infarction, electrolyte abnormalities, arrhythmia, pulmonary embolus Dr. Candelario diallo evaluated the twelve-lead EKG in question. He does feel it necessary to activate the cardiac catheter lab and send this patient to that facility. He is not 100% convinced it is myocardial infarction. He thinks it might be pericarditis. However there is actual, visible ST elevation in the inferior leads and therefore we activated the cardiac catheter lab at [facility]. At approximately 1715, I spoke with Dr. Doan at [facility]. I reviewed the patient, presenting complaint, physical findings examination and the twelve- lead EKG results. I also discussed the conversation I had with Dr. Candelario Diallo, our telemetry pageant director. She accepts the patient in transfer. I interpreted the patient's second twelve-lead EKG that was performed on 12/06/2024 at 1656. Heart rate is 63 bpm. Pattern is normal sinus rhythm with minimal ST elevation persistent in the inferior leads. QTc is 396. I interpreted the patient's third twelve-lead EKG performed on 12/08/2024 at 1714. Heart rate is 68 bpm and normal sinus rhythm pattern. The ST elevation is becoming more obvious and visible. QTc is 415. Blood Culture(s) Obtained: No Antibiotics given: No Counseled pt/family regarding: diagnosis Medical Desision Making - Discussion of managment Care discussed with:: hospitalist ([facility]) - Diagnostic Testing Diagnostic test were ordered, analyzed, and reviewed by me: Yes Radiological Interpretation: Interpreted by me - Risk of complications The pt has a high risk of morbidity or mortality based on: Decision regarding hospitilization or escalation of hosp level of care - Departure Departure Disposition: Transfer Clinical Impression: Chest pain, STEMI (ST elevation myocardial infarction) Condition: Serious Critical Care Time: Yes Critical Care Time(excluding separately billable procedures): Critical 30-74 mins (30) Referrals: GEE ABARCA [Primary Care Provider, [facility]] - Follow up/PCP as directed
[2024-12-06] MEDS ORDERED: Zofran 4 MG/2 ML VIAL ONE (16:57)
[2024-12-06] MEDS ORDERED: MORPHINE SULFATE 4 MG INJ ONE (16:58)
[2024-12-06] MEDS ORDERED: BABY ASPIRIN 81 MG CHEW ONE (16:58)
[2024-12-06] MEDS: Zofran 4 MG/2 ML VIAL IV ONE (16:59)
[2024-12-06] MEDS: BABY ASPIRIN 81 MG CHEW PO ONE (17:00)
[2024-12-06] MEDS: MORPHINE SULFATE 4 MG INJ IV ONE (17:00)
[2024-12-06 17:10] LABS: BASOPHIL % 0.3 % (0.1-1.2); Basophil (Absolute #) 0.05 x10^3/uL (0.01-0.08); Eosinophil (Absolute #) 0 x10^3/uL (0.04-0.36); Hematocrit 45.7 % (34.1-44.9); Hemoglobin 14.9 g/dL (11.2-15.7); IMMATURE GRAN # 0.13 x10^3u/L (0.001-0.031); IMMATURE GRAN % 0.9 % (0.001-0.429); Lymphocyte (Absolute #) 1.82 x10^3/uL (1.18-3.74); Mean Corpuscular Hemoglobin 31.2 pg (25.6-32.2); Mean Corpuscular Hgb Concent. 32.6 g/dL (32.2-35.5); Monocyte (Absolute #) 0.67 x10^3/uL (0.24-0.86); NUCLEATED RBC # 0.00 x10^3u/L (0.00-0.012); NUCLEATED RBC % 0.0 % (0.00-0.2); Platelet Count 345 x10^3/uL (182-369); Red Blood Count 4.78 x10^6/uL (3.93-5.22); White Blood Count 14.8 x10^3/uL (3.98-10.04)
[2024-12-06] MEDS ORDERED: HEPARIN 5000 UNITS/0.5 ML (HIGH RISK MED) ONE (17:11)
[2024-12-06] MEDS: HEPARIN 5000 UNITS/0.5 ML (HIGH RISK MED) IV ONE (17:12)
[2024-12-06 17:23] LABS: CK-Creatinine Phosphokinase 33.0 U/L (30-135); Calcium 10.1 mg/dL (8.4-10.2); Carbon Dioxide 27.0 mmol/L (22-30); Creatinine 1 1.22 mg/dL (0.52-1.04); EST GLOMERULAR FILTRATION RATE 50.8 ML/MIN; Glucose 129.0 mg/dL (74-106); Potassium 4.4 mmol/L (3.5-5.1); SGOT/AST 28.0 U/L (14-36); SGPT/ALT 30.0 U/L (0-35); Total Protein 7.6 g/dL (6.3-8.2)
[2024-12-06 17:26] VITALS: O2SAT 99
[2024-12-06 17:26] LABS: INR 0.97 (0.8-3.0); PROTIME 10.6 SECONDS (9.4-12.5); PTT 21.6 SECONDS (25.1-36.5)
[2024-12-06] MEDS ORDERED: Heparin 25,000 units/D5W: USE ORDER SET PROTO 25,000 UNITS/250 ML BAG IV ONE (17:26)
--- NOTE | 2024-12-06 20:18 | XRAY ---
Indication: Chest pain. Comparison: September 12, 2022 Portable chest remains inflated and clear. Heart not enlarged. Bony thorax intact. No new/acute findings.
== END 2024-12-06 17:29 | disposition short-term general hospital (02) ==
LOC: ED 16:45
DX: I21.3 ST elevation (STEMI) myocardial infarction of unspecified site (principal); R07.9 Chest pain, unspecified; I10 Essential (primary) hypertension; Z79.899 Other long term (current) drug therapy